=== PATIENT | male | born 1935 | race Hispanic/Latino ===

== ENCOUNTER 2017-05-11 11:46 | Inpatient (IN) | payer MEDICARE ==
[~2017-05-11] VITALS: Ht 174 cm; Wt 79.8 kg
[2017-05-11 11:26] VITALS: BP 149/71
[2017-05-11 11:30] LABS: BASOPHILS % (AUTO) 0.8 % (0.0-5.0); EOSINOPHILS % (AUTO) 1.6 % (0.0-8.0); LYMPHOCYTES % (AUTO) 24.7 % (21.0-51.0); MEAN CORPUSCULAR HGB CONC 33.7 g/dL (32.0-36.0); MONOCYTES % (AUTO) 8.9 % (3.0-13.0); PLATELET COUNT (AUTO) 257 K/uL (130-400); RED BLOOD CELL COUNT(AUTO) 4.61 MIL/uL (4.50-6.20); RED CELL DISTRIBUTION WIDTH 14.4 % (11.0-15.5); WHITE BLOOD COUNT (AUTO) 6.8 K/uL (4.8-10.8)
[2017-05-11 11:32] LABS: APPEARANCE,URINE Clear (CLEAR); BILIRUBIN,URINE Negative (NEGATIVE); COLOR,URINE Yellow (YELLOW); GLUCOSE, URINE (UA) Negative (NEGATIVE); KETONES,URINE Negative (NEGATIVE); LEUKOCYTE ESTERASE ,URINE Negative (NEGATIVE); NITRATE,URINE Negative (NEGATIVE); OCCULT BLOOD,URINE Negative (NEGATIVE); PH,URINE 5.5 (5.0-8.0); PROTEIN,URINE Negative (NEGATIVE)
[2017-05-11 11:41] LABS: CREATININE 1.2 mg/dL (0.5-1.5)
[~2017-05-11 11:46] MED LIST: ASPI-1181 PO; LOSA100T29 PO; METF10004 PO; MV-M1TAB20 PO; PRAV20TA4 PO; SPIR25TA6 PO
[2017-05-11 12:24] LABS: INR 0.97 (0.85-1.15); PARTIAL THROMBOPLASTIN TIME 31.4 SEC (26.3-35.5)
[2017-05-14] VITALS (20 sets, daily range): BP systolic 112–167; BP diastolic 60–79
[2017-05-14] MEDS: CEFAZOLIN SODIUM 1 GM VIAL IVP SCH ×3 (06:00→17:50)
[2017-05-14] MEDS ORDERED: LACTATED RINGERS 1000ML 1,000 ML IV ONE (07:30)
[2017-05-14] MEDS ORDERED: ACETAMINOPHEN EXTRA STRENGTH 500 MG TABLET ONE (08:20)
[2017-05-14] MEDS ORDERED: KETOROLAC TROMETHAMINE 15MG/ML ONE (08:20)
[2017-05-14] MEDS ORDERED: CELECOXIB 200 MG CAP ONE (08:21)
[2017-05-14] MEDS ORDERED: OXYCODONE HCL 10 MG TAB.SR.12H PO ONE (08:21)
[2017-05-14] MEDS ORDERED: BUPIVACAINE/EPI/PF 0.25% 30ML VIAL IJ ONE (08:45)
[2017-05-14] MEDS ORDERED: TRANEXAMIC ACID 1000MG/10ML IV ONE (08:45)
[2017-05-14] MEDS ORDERED: CEFAZOLIN SODIUM 1 GM VIAL ONE (08:45)
[2017-05-14] MEDS ORDERED: GLYCOPYRROLATE 0.2 MG/ML 5 ML VIAL IM ONE (09:55)
[2017-05-14] MEDS ORDERED: DEXAMETHASONE SOD PHOSPHATE 10MG/ML 1ML VIAL IV ONE (09:55)
[2017-05-14] MEDS ORDERED: MIDAZOLAM HCL 1 MG/ML 2ML VIAL IVP ONE (09:55)
[2017-05-14] MEDS ORDERED: LIDOCAINE PF 2% 5ML ABBOJECT IVP ONE (09:55)
[2017-05-14] MEDS ORDERED: ROPIVACAINE 0.5% 5MG/ML 30ML IJ ONE (09:55)
[2017-05-14] MEDS ORDERED: PROPOFOL 10 MG/ML 20ML VIAL IV ONE (09:56)
[2017-05-14] MEDS ORDERED: FENTANYL CITRATE PF 50 MCG/1 ML 2ML VIAL IVP ONE ×2 (09:56→10:53)
[2017-05-14] MEDS: SODIUM CHLORIDE 0.9% 1000ML 1,000 ML IV SCH ×2 (11:53→20:40)
[2017-05-14] MEDS ORDERED: POTASSIUM CHLORIDE 20MEQ/100ML 100 ML IV PRN (12:00)
[2017-05-14] MEDS ORDERED: CALCIUM CARBONATE 500 MG TABLET PO PRN (12:00)
[2017-05-14] MEDS ORDERED: OXYCODONE HCL 5 MG TAB PO PRN (12:00)
[2017-05-14] MEDS: ACETAMINOPHEN 325 MG TAB PO SCH ×2 (12:00→17:51)
[2017-05-14] MEDS ORDERED: KETOROLAC TROMETHAMINE 15MG/ML IV PRN (12:00)
[2017-05-14] MEDS ORDERED: TEMAZEPAM 15 MG CAPSULE PO PRN (12:00)
[2017-05-14] MEDS ORDERED: POTASSIUM CHLORIDE 10% ELIXIR 20 MEQ/15 ML UDCUP PO PRN (12:00)
[2017-05-14] MEDS ORDERED: FERROUS FUMARATE 324 MG TABLET PO PRN (12:00)
[2017-05-14] MEDS ORDERED: TRAMADOL HCL 50 MG TABLET PO PRN (12:00)
[2017-05-14] MEDS: PSYLLIUM SEED 1 EACH PACKET PO SCH (12:00)
[2017-05-14] MEDS ORDERED: DiphenhydrAMINE HCL 50 MG/ML VIAL IVP PRN (12:00)
[2017-05-14] MEDS ORDERED: PROMETHAZINE HCL 25 MG/ML 1ML AMPULE IM PRN (12:00)
[2017-05-14] MEDS ORDERED: DIPHENHYDRAMINE HCL 25 MG CAPSULE PO PRN (12:00)
[2017-05-14] MEDS ORDERED: POTASSIUM CHLORIDE 20 MEQ ERTAB PO PRN (12:00)
[2017-05-14] MEDS ORDERED: LIDOCAINE HCL-MPF 1% 2ML VIAL IVP PRN (12:00)
[2017-05-14] MEDS ORDERED: NEOSTIGMINE METHYLSULFATE 1MG/ML IV ONE (12:20)
[2017-05-14] MEDS: INSULIN HUMULIN R 100 UNIT/ML 3ML SQ SCH ×2 (16:15→20:41)
[2017-05-14] MEDS ORDERED: CEFAZOLIN 2GM / 50 ML 50 ML IV SCH (17:00)
[2017-05-14] MEDS: METFORMIN HCL 500 MG TABLET PO SCH (17:51)
[2017-05-14] MEDS: PREGABALIN 25 MG CAP PO SCH (20:39)
[2017-05-14] MEDS: ASPIRIN 325 MG TABLET PO SCH (20:39)
[2017-05-14] MEDS: FAMOTIDINE 20MG TAB 20 MG TAB PO SCH (20:39)
[2017-05-14] MEDS: CELECOXIB 200 MG CAP PO SCH (20:40)
[2017-05-15 00:03] VITALS: BP 132/74
[2017-05-15] MEDS: CEFAZOLIN SODIUM 1 GM VIAL IVP SCH (00:30)
[2017-05-15] MEDS: ACETAMINOPHEN 325 MG TAB PO SCH ×5 (00:31→23:55)
[2017-05-15 05:09] VITALS: BP 131/83
[2017-05-15] MEDS: INSULIN HUMULIN R 100 UNIT/ML 3ML SQ SCH ×4 (05:41→21:00)
[2017-05-15 06:11] LABS: HEMATOCRIT 34.1 % (42-54); MEAN CORPUSCULAR HGB CONC 34.8 g/dL (32.0-36.0); MEAN CORPUSCULAR VOLUME 89.1 fL (79-99); PLATELET COUNT (AUTO) 226 K/uL (130-400); RED BLOOD CELL COUNT(AUTO) 3.83 MIL/uL (4.50-6.20); RED CELL DISTRIBUTION WIDTH 14.3 % (11.0-15.5); WHITE BLOOD COUNT (AUTO) 10.9 K/uL (4.8-10.8)
[2017-05-15 06:31] LABS: CREATININE 1.3 mg/dL (0.5-1.5); POTASSIUM 4.3 mmol/L (3.5-5.1)
[2017-05-15] MEDS: SODIUM CHLORIDE 0.9% 1000ML 1,000 ML IV SCH (07:53)
[2017-05-15 08:00] VITALS: BP 143/83
[2017-05-15] MEDS: FAMOTIDINE 20MG TAB 20 MG TAB PO SCH ×2 (08:36→20:37)
[2017-05-15] MEDS: CELECOXIB 200 MG CAP PO SCH ×2 (08:36→20:37)
[2017-05-15] MEDS: TAMSULOSIN HCL 0.4 MG CAP.ER.24H PO SCH (08:36)
[2017-05-15] MEDS: POLYETHYLENE GLYCOL 3350 17 GM POWD.PACK PO SCH (08:36)
[2017-05-15] MEDS: ATORVASTATIN CALCIUM 10 MG TABLET PO SCH (08:37)
[2017-05-15] MEDS: METFORMIN HCL 500 MG TABLET PO SCH ×2 (08:37→16:06)
[2017-05-15] MEDS: LOSARTAN 100 MG TABLET PO SCH (08:37)
[2017-05-15] MEDS: ASPIRIN 325 MG TABLET PO SCH ×2 (08:37→20:37)
[2017-05-15] MEDS: SPIRONOLACTONE 25 MG TAB PO SCH (08:37)
[2017-05-15] MEDS: OXYCODONE HCL 5 MG TAB PO PRN ×2 (08:44→16:13)
[2017-05-15] MEDS: PREGABALIN 25 MG CAP PO SCH ×2 (10:07→20:37)
[2017-05-15] MEDS: PSYLLIUM SEED 1 EACH PACKET PO SCH (11:51)
[2017-05-15 11:56] VITALS: BP 117/72
[2017-05-15] MEDS ORDERED: ASPI-1012 PO (12:00)
[2017-05-15] MEDS ORDERED: HYDR-309 PO (12:00)
[2017-05-15 17:00] VITALS: BP 126/58
[2017-05-15 19:56] VITALS: BP 136/56
[2017-05-16 00:28] VITALS: BP 124/55
[2017-05-16 04:03] VITALS: BP 141/61
[2017-05-16 05:41] LABS: HEMATOCRIT 30.6 % (42-54); MEAN CORPUSCULAR HEMOGLOBIN 32.5 pg (27.0-33.0); MEAN CORPUSCULAR HGB CONC 36.5 g/dL (32.0-36.0); PLATELET COUNT (AUTO) 172 K/uL (130-400); RED BLOOD CELL COUNT(AUTO) 3.44 MIL/uL (4.50-6.20); RED CELL DISTRIBUTION WIDTH 14.6 % (11.0-15.5); WHITE BLOOD COUNT (AUTO) 7.4 K/uL (4.8-10.8)
[2017-05-16] MEDS: INSULIN HUMULIN R 100 UNIT/ML 3ML SQ SCH ×2 (05:41→11:30)
[2017-05-16 05:56] LABS: CREATININE 1.2 mg/dL (0.5-1.5); POTASSIUM 4.1 mmol/L (3.5-5.1)
[2017-05-16] MEDS: ACETAMINOPHEN 325 MG TAB PO SCH ×2 (06:01→12:08)
[2017-05-16] MEDS: METFORMIN HCL 500 MG TABLET PO SCH (07:22)
[2017-05-16 08:00] VITALS: BP 148/84
[2017-05-16] MEDS: TAMSULOSIN HCL 0.4 MG CAP.ER.24H PO SCH (09:00)
[2017-05-16] MEDS: POLYETHYLENE GLYCOL 3350 17 GM POWD.PACK PO SCH (09:30)
[2017-05-16] MEDS: SPIRONOLACTONE 25 MG TAB PO SCH (09:30)
[2017-05-16] MEDS: FAMOTIDINE 20MG TAB 20 MG TAB PO SCH (09:31)
[2017-05-16] MEDS: PREGABALIN 25 MG CAP PO SCH (09:31)
[2017-05-16] MEDS: ASPIRIN 325 MG TABLET PO SCH (09:31)
[2017-05-16] MEDS: ATORVASTATIN CALCIUM 10 MG TABLET PO SCH (09:31)
[2017-05-16] MEDS: CELECOXIB 200 MG CAP PO SCH (09:31)
[2017-05-16] MEDS: LOSARTAN 100 MG TABLET PO SCH (09:32)
[2017-05-16] MEDS: PSYLLIUM SEED 1 EACH PACKET PO SCH (12:00)
[2017-05-17] MEDS ORDERED: BISACODYL 10 MG SUPP.RECT RC PRN (12:00)
== END 2017-05-16 15:50 | DRG 470 ==
LOC: EDSTATUS 14:30 → DAHIP 05-14 07:11 → 4AH 05-14 13:36
PROVIDERS: ADMIT Orthopaedic Surgery; ATTEND Orthopaedic Surgery
PROC: 0SRD0J9 Replacement of Left Knee Joint with Synthetic Substitute, Cemented, Open Approach (ICD-10-PCS; principal; 2017-05-14 09:57)
DX: M17.12 Unilateral primary osteoarthritis, left knee (principal); E11.9 Type 2 diabetes mellitus without complications; I10 Essential (primary) hypertension; G89.29 Other chronic pain
CPT/HCPCS: 36415; 80048; 81003; 82948; 85025; 85027; 85610; 85730; 88305; 88311; 93005; 96374; A4218; C1713; J0690; J1100; J1885; J2001; J2250; J2704; J2710; J2795; J3010; J3490; J7030; J7120

== ENCOUNTER 2021-11-28 10:23 | Inpatient (IN) | payer MEDICARE, OTHER ==
[~2021-11-28] VITALS: Ht 170.2 cm; Wt 79.4 kg
[~2021-11-28 10:23] MED LIST changes: +AMLO2.5T4 PO; +ASPI-1012 PO; -ASPI-1181 PO; +HYDR-4457 PO; -LOSA100T29 PO; +LOSA100T58 PO; +METF-446 PO; -METF10004 PO; -MV-M1TAB20 PO; -SPIR25TA6 PO; +TYLENOL PO
[2021-11-28 10:47] LABS: HEMATOCRIT 40.9 % (42-54); MEAN CORPUSCULAR HEMOGLOBIN 29.6 pg (27.0-33.0); MEAN CORPUSCULAR HGB CONC 32.5 g/dL (32.0-36.0); MEAN CORPUSCULAR VOLUME 91.1 fL (79-99); PLATELET COUNT (AUTO) 613 K/uL (130-400); RED BLOOD CELL COUNT(AUTO) 4.49 MIL/uL (4.50-6.20); RED CELL DISTRIBUTION WIDTH 13.7 % (11.0-15.5); WHITE BLOOD COUNT (AUTO) 22.3 K/uL (4.8-10.8)
[2021-11-28 10:58] LABS: CREATININE 1.8 mg/dL (0.5-1.5)
[2021-11-28 11:03] LABS: ALBUMIN 2.5 g/dL (3.5-5.0)
[2021-11-28 11:17] LABS: APPEARANCE,URINE CLEAR (CLEAR); BILIRUBIN,URINE NEGATIVE (NEGATIVE); COLOR,URINE YELLOW (YELLOW); GLUCOSE, URINE (UA) NEGATIVE (NEGATIVE); KETONES,URINE NEGATIVE (NEGATIVE); LEUKOCYTE ESTERASE ,URINE NEGATIVE Leu/uL (NEGATIVE); NITRATE,URINE NEGATIVE (NEGATIVE); OCCULT BLOOD,URINE NEGATIVE (NEGATIVE); PROTEIN,URINE 20 mg/dL (NEGATIVE); UROBILINOGEN,URINE 0.2 mg/dL (0.2-1.0)
[2021-11-28] MEDS ORDERED: CLINDAMYCIN IVPB 600MG/50ML 50 ML IV ONE (11:30)
[2021-11-28] MEDS ORDERED: VANCOMYCIN 1G/250ML KIT 250 ML IV ONE (11:30)
[2021-11-28] MEDS ORDERED: LEVOFLOXACIN 750 MG/D5W 150 ML 150 ML IV ONE (11:30)
[2021-11-28 11:39] LABS: EOSINOPHILS % (MANUAL) 1 % (1-6); LYMPHOCYTES % (MANUAL) 9 % (22-44); MAN.DIFF COMMENT-IMPRESSION MANUAL DIFFERENTIAL; MONOCYTES % (MANUAL) 3 % (2-9); SEGMENTED NEUTROPHILS % 87 % (40-70)
[2021-11-28 11:40] LABS: PLATELET MORPHOLOGY COMMENT MARKED INCREASE
[2021-11-28 11:51] LABS: HYALINE CASTS, URINE 51-100 /LPF (0-1 /LPF); MUCUS,URINE RARE LPF (None Seen)
[2021-11-28] MEDS ORDERED: IOHEXOL 350 MG/ML 100ML INFUS..BTL IV ONE (12:38)
[2021-11-28] MEDS ORDERED: ONDANSETRON 4MG INJ IVP PRN (15:30)
[2021-11-28] MEDS ORDERED: ACETAMINOPHEN 325 MG TAB PO PRN (15:30)
[2021-11-28] MEDS: INSULIN HUMULIN R 100 UNIT/ML 3ML SQ SCH ×2 (16:22→20:06)
[2021-11-28] MEDS: CEFEPIME HCL 1 GM VIAL IVP SCH (18:07)
[2021-11-28 22:04] VITALS: BP 141/81
[2021-11-28 23:47] VITALS: BP 130/61
[2021-11-29 03:49] VITALS: BP 122/55
[2021-11-29 05:41] LABS: HEMATOCRIT 36.2 % (42-54); MEAN CORPUSCULAR HEMOGLOBIN 29.8 pg (27.0-33.0); MEAN CORPUSCULAR HGB CONC 32.9 g/dL (32.0-36.0); MEAN CORPUSCULAR VOLUME 90.7 fL (79-99); RED BLOOD CELL COUNT(AUTO) 3.99 MIL/uL (4.50-6.20); RED CELL DISTRIBUTION WIDTH 13.8 % (11.0-15.5); WHITE BLOOD COUNT (AUTO) 16.4 K/uL (4.8-10.8)
[2021-11-29 06:02] LABS: HEMOGLOBIN A1C 6.4 % (4.0-6.0)
[2021-11-29] MEDS: INSULIN HUMULIN R 100 UNIT/ML 3ML SQ SCH ×4 (06:05→20:10)
[2021-11-29 08:00] VITALS: BP 118/66
[2021-11-29] MEDS: ENOXAPARIN SODIUM 30 MG/0.3 ML SQ SCH (08:52)
[2021-11-29] MEDS ORDERED: OSELTAMIVIR PHOSPHATE 75 MG CAP PO SCH (11:00)
[2021-11-29] MEDS ORDERED: GUAIFENESIN-DM 200/20 MG 10 ML PO PRN ×2 (11:00→17:00)
[2021-11-29] MEDS ORDERED: LEVOFLOXACIN 750 MG/D5W 150 ML 150 ML IV SCH (11:00)
[2021-11-29] MEDS: MAGNESIUM 2GM PREMIX 50ML 50 ML IV PRN (11:35)
[2021-11-29] MEDS: ACETAMINOPHEN 325 MG TAB PO PRN (11:38)
[2021-11-29 11:40] VITALS: BP 112/66
[2021-11-29 16:00] VITALS: BP 132/65
[2021-11-29 19:00] VITALS: BP 124/72
[2021-11-29] MEDS: CEFEPIME HCL 1 GM VIAL IVP SCH (19:15)
[2021-11-30] VITALS: BP 137/70
[2021-11-30 04:00] VITALS: BP 123/61
[2021-11-30 05:13] LABS: HEMATOCRIT 37.8 % (42-54); MEAN CORPUSCULAR HEMOGLOBIN 29.3 pg (27.0-33.0); MEAN CORPUSCULAR HGB CONC 32.3 g/dL (32.0-36.0); MEAN CORPUSCULAR VOLUME 90.9 fL (79-99); RED BLOOD CELL COUNT(AUTO) 4.16 MIL/uL (4.50-6.20); RED CELL DISTRIBUTION WIDTH 13.9 % (11.0-15.5); WHITE BLOOD COUNT (AUTO) 14.1 K/uL (4.8-10.8)
[2021-11-30 05:27] LABS: CREATININE 1.4 mg/dL (0.5-1.5); MAGNESIUM 1.7 mg/dL (1.80-2.40); POTASSIUM 5.1 mmol/L (3.5-5.1)
[2021-11-30] MEDS: INSULIN HUMULIN R 100 UNIT/ML 3ML SQ SCH ×4 (05:48→21:00)
[2021-11-30 08:00] VITALS: BP 139/64
[2021-11-30] MEDS: MAGNESIUM 2GM PREMIX 50ML 50 ML IV PRN (08:21)
[2021-11-30] MEDS: LACTULOSE 20 GM/30 ML UDCUP PO SCH (08:21)
[2021-11-30] MEDS: ENOXAPARIN SODIUM 30 MG/0.3 ML SQ SCH (08:22)
[2021-11-30] MEDS: ACETAMINOPHEN 325 MG TAB PO PRN (08:40)
[2021-11-30 12:00] VITALS: BP 125/59
[2021-11-30] MEDS: OSELTAMIVIR PHOSPHATE 75 MG CAP PO SCH (15:16)
[2021-11-30] MEDS: LEVOFLOXACIN 750 MG/D5W 150 ML 150 ML IV SCH (15:16)
[2021-11-30 16:00] VITALS: BP 123/59
[2021-11-30] MEDS: CEFEPIME HCL 1 GM VIAL IVP SCH (17:41)
[2021-11-30 20:15] VITALS: BP 127/50
[2021-12-01] VITALS: BP 106/57
[2021-12-01 04:00] VITALS: BP 117/55
[2021-12-01] MEDS: INSULIN HUMULIN R 100 UNIT/ML 3ML SQ SCH ×4 (06:06→20:14)
[2021-12-01 08:00] VITALS: BP 115/59
[2021-12-01] MEDS: LACTULOSE 20 GM/30 ML UDCUP PO SCH (08:44)
[2021-12-01] MEDS: ENOXAPARIN SODIUM 30 MG/0.3 ML SQ SCH (08:44)
[2021-12-01 12:00] VITALS: BP 109/63
[2021-12-01 13:37] LABS: HEMATOCRIT 40.1 % (42-54); MEAN CORPUSCULAR HEMOGLOBIN 29.7 pg (27.0-33.0); MEAN CORPUSCULAR HGB CONC 32.9 g/dL (32.0-36.0); MEAN CORPUSCULAR VOLUME 90.1 fL (79-99); RED BLOOD CELL COUNT(AUTO) 4.45 MIL/uL (4.50-6.20); WHITE BLOOD COUNT (AUTO) 14.1 K/uL (4.8-10.8)
[2021-12-01 13:48] LABS: CREATININE 1.4 mg/dL (0.5-1.5); POTASSIUM 4.5 mmol/L (3.5-5.1)
[2021-12-01 16:00] VITALS: BP 136/71
[2021-12-01] MEDS: CEFEPIME HCL 1 GM VIAL IVP SCH ×2 (18:08→18:48)
[2021-12-01 20:00] VITALS: BP 129/60
[2021-12-02] VITALS: BP 142/64
[2021-12-02 04:00] VITALS: BP 124/60
[2021-12-02 05:16] LABS: HEMATOCRIT 39.1 % (42-54); MEAN CORPUSCULAR HEMOGLOBIN 29.7 pg (27.0-33.0); MEAN CORPUSCULAR HGB CONC 32.5 g/dL (32.0-36.0); MEAN CORPUSCULAR VOLUME 91.4 fL (79-99); RED BLOOD CELL COUNT(AUTO) 4.28 MIL/uL (4.50-6.20); RED CELL DISTRIBUTION WIDTH 13.8 % (11.0-15.5); WHITE BLOOD COUNT (AUTO) 11.6 K/uL (4.8-10.8)
[2021-12-02] MEDS: INSULIN HUMULIN R 100 UNIT/ML 3ML SQ SCH ×3 (05:24→16:30)
[2021-12-02 05:26] LABS: CREATININE 1.3 mg/dL (0.5-1.5); MAGNESIUM 1.7 mg/dL (1.80-2.40)
[2021-12-02] MEDS: MAGNESIUM 2GM PREMIX 50ML 50 ML IV PRN (05:38)
[2021-12-02 07:14] VITALS: BP 126/63
[2021-12-02] MEDS: ENOXAPARIN SODIUM 30 MG/0.3 ML SQ SCH (09:12)
[2021-12-02] MEDS: LACTULOSE 20 GM/30 ML UDCUP PO SCH (09:12)
[2021-12-02 12:17] VITALS: BP 121/70
[2021-12-02] MEDS: LEVOFLOXACIN 750 MG/D5W 150 ML 150 ML IV SCH (14:51)
[2021-12-02] MEDS: OSELTAMIVIR PHOSPHATE 75 MG CAP PO SCH (14:51)
== END 2021-12-02 17:05 | disposition home or self-care (01) | DRG 871 ==
LOC: EDH 10:23 → EDHIP 14:13 → 3BH 21:40 → 3AH 12-02 14:23 → 3BH 12-02 14:24
PROVIDERS: ADMIT Internal Medicine Infectious Disease; ATTEND Internal Medicine Infectious Disease
DX: A41.9 Sepsis, unspecified organism (principal); J10.00 Influenza due to other identified influenza virus with unspecified type of pneumonia; N17.9 Acute kidney failure, unspecified; Z20.822 Contact with and (suspected) exposure to COVID-19; E11.9 Type 2 diabetes mellitus without complications; I10 Essential (primary) hypertension; E66.9 Obesity, unspecified; Z96.653 Presence of artificial knee joint, bilateral; E83.42 Hypomagnesemia; E78.5 Hyperlipidemia, unspecified; Z83.3 Family history of diabetes mellitus; Z68.27 Body mass index [BMI] 27.0-27.9, adult
CPT/HCPCS: 36415; 71045; 71260; 80048; 80053; 81001; 82550; 82948; 83036; 83605; 83735; 83880; 84484; 85025; 85027; 87040; 87635; 87804; 93005; 97039; C9803; G0378; J0692; J1650; J1956; J3370; J3475; J3490; Q9967